=== PATIENT | male | born 1970 | race Caucasian/White ===

== ENCOUNTER 2019-02-03 20:17 | Emergency (ER) | payer SELFPAY ==
[~2019-02-03] VITALS: Ht 167.6 cm; Wt 81.6 kg
[2019-02-03 20:32] VITALS: BP 147/94; Ht 167.6 cm; Wt 81.6 kg
== END 2019-02-03 23:46 | disposition left against medical advice (07) ==
LOC: ED 20:17
DX: Z53.21 Procedure and treatment not carried out due to patient leaving prior to being seen by health care provider (principal)